=== PATIENT | male | born 1980 | race Caucasian/White ===

== ENCOUNTER 2019-07-18 12:47 | Emergency (ER) | payer OTHER ==
[~2019-07-18] VITALS: Ht 195.6 cm; Wt 110.9 kg
--- NOTE | 2019-07-18 13:05 | NUR ---
PT C/O SHARP LEFT CP RADIATING TO LEFT SHOULDER ABOUT 1800 LAST NIGHT. PT EXERCISED YESTERDAY MORNING THEN CLEANED THE HOUSE, SO "HAD AN ACTIVE DAY". PAIN WAS INTERMITTENT FOR A FEW HOURS. CONNECTED TO MONITORING. CALL LIGHT IN REACH. AWAITING ORDERS AT THIS TIME.
[2019-07-18 13:43] LABS: ANION GAP 3 mmol/L (5-15); CALCIUM 8.8 mg/dL (8.5-10.1); CHLORIDE 110 mmol/L (98-107); CREATININE 0.89 mg/dL (0.7-1.3)
[2019-07-18 13:47] LABS: TROPONIN I < 0.015 ng/mL (0.000-0.045)
[2019-07-18 13:48] LABS: BASOPHILS # (AUTO) 0.03 x10^3/uL (0-0.1); BASOPHILS % (AUTO) 1 % (0-1); EOSINOPHILS # (AUTO) 0.14 x10^3/uL (0-0.4); EOSINOPHILS % (AUTO) 3 % (1-7); LYMPHOCYTES # (AUTO) 1.68 x10^3/uL (1-3.4); LYMPHOCYTES % (AUTO) 38 % (22-44); MD NO; MEAN CORPUSCULAR HGB CONC 34.2 g/dL (33.2-36.2); MEAN CORPUSCULAR VOLUME 93.8 fL (81-97); MEAN PLATELET VOLUME 7.2 fL (7.4-10.4); MONOCYTES # (AUTO) 0.66 x10^3/uL (0.2-0.8); MONOCYTES % (AUTO) 15 % (2-9); NEUTROPHILS # (AUTO) 1.92 x10^3/uL (1.8-6.8); NEUTROPHILS % (AUTO) 43 % (42-75); PLATELET COUNT 237 x10^3/uL (130-400); RED BLOOD COUNT 4.93 x10^6/uL (4.38-5.82); RED CELL DISTRIBUTION WIDTH 12.5 % (9.4-14.8)
[2019-07-18 14:08] VITALS: BP 120/81
--- NOTE | 2019-07-18 14:08 | NUR ---
ALL RESULTS ARE BACK AT THIS TIME. CHART UP FOR RECHECK.
--- NOTE | 2019-07-18 14:09 | NUR ---
MD AT BEDSIDE TO UPDATE PT ON POC.
== END 2019-07-18 14:18 | disposition home or self-care (01) ==
LOC: ED 13:39
DX: R07.89 Other chest pain (principal); I10 Essential (primary) hypertension; J45.909 Unspecified asthma, uncomplicated
CPT/HCPCS: 36415; 71046; 80048; 84484; 85025; 93005; 99284